=== PATIENT | female | born 1970 | race Caucasian/White ===

== ENCOUNTER → 2017-12-25 | Outpatient (CLI) | payer OTHER ==
[~2017-12-25] MED LIST: COLACE 100100 MG/CAP PO; DESYREL DIVIDO300 MG PO; DILAUDID 4MG TAB4 MG PO; EXALGO12 MG PO; HUMIRA40 MG/0.1; LIORESAL20 MG PO; LODINE500 MG PO; MIRALAX119G PO; NEURONTIN800 MG/TAB PO; NORVASC 10MG10 MG PO; TYLENOL 500MG500 MG PO; WELLBUTRIN SR200 MG PO
== END ==
LOC: COL.RAD 08:00
DX: R10.12 Left upper quadrant pain (principal); R10.13 Epigastric pain; R14.0 Abdominal distension (gaseous); R11.10 Vomiting, unspecified; R16.1 Splenomegaly, not elsewhere classified; Z88.8 Allergy status to other drugs, medicaments and biological substances
CPT/HCPCS: A9541

== ENCOUNTER → 2019-07-01 | Outpatient (CLI) | payer OTHER | LOC: BHSO 10:24 | DX: F31.81 Bipolar II disorder (principal) ==

== ENCOUNTER → 2019-08-07 | Outpatient (CLI) | payer OTHER | LOC: BHSO 09:28 | DX: F31.81 Bipolar II disorder (principal) | CPT/HCPCS: G0463 ==

== ENCOUNTER → 2019-11-06 | Outpatient (CLI) | payer OTHER | LOC: BHSO 09:32 | DX: F31.81 Bipolar II disorder (principal) | CPT/HCPCS: G0463 ==

== ENCOUNTER → 2020-03-04 | Outpatient (CLI) | payer OTHER | LOC: BHSO 09:31 | DX: F31.81 Bipolar II disorder (principal) | CPT/HCPCS: G0463 ==

== ENCOUNTER → 2020-05-27 | Outpatient (CLI) | payer OTHER | LOC: BHSO 09:36 | DX: F31.81 Bipolar II disorder (principal) | CPT/HCPCS: G0463 ==

== ENCOUNTER → 2020-06-15 | Outpatient (CLI) | payer OTHER | LOC: BHSO 10:58 | DX: F31.11 Bipolar disorder, current episode manic without psychotic features, mild (principal) ==

== ENCOUNTER 2020-10-27 07:27 | Day surgery (SDC) | payer OTHER ==
[~2020-10-27] VITALS: Ht 172.7 cm; Wt 86.6 kg
[2020-10-27 08:15] VITALS: BP 130/75; PULSE 72; TEMP 98
[2020-10-27] MEDS ORDERED: WELLBUTRIN SR150 M1 PO (08:23)
[2020-10-27] MEDS ORDERED: NEURONTIN600 MG/TAB PO (08:24)
[2020-10-27] MEDS ORDERED: DESYREL 100MG100 MG PO (08:25)
[2020-10-27] MEDS ORDERED: FLOMAX 0.40.4 MG/CAP PO (08:26)
[2020-10-27] MEDS ORDERED: NORCO 325 MG-51 TAB PO (08:26)
--- NOTE | 2020-10-27 08:28 | NUR ---
TO RM 2 AT 0745- CALL LIGHT IN REACH AT BEDSIDE
[2020-10-27 10:57] VITALS: TEMP 97.2
[2020-10-27 11:05] VITALS: BP 114/75; PULSE 65
--- NOTE | 2020-10-27 11:05 | NUR ---
TO 2 PER CART FROM PACU. ALERT ORIETNED X3, TALKING WITH STAFF AND . C/O PAIN 3/10 AND DENIES NAUSEA. UPON RETURNING TO , PATIENT AMBULATED TO BATHROOM AND VOIDED.
[2020-10-27 11:20] VITALS: BP 112/79; PULSE 91
--- NOTE | 2020-10-27 11:20 | NUR ---
RECEIVED DIET PEPSI AND DAVY CRACKERS.
--- NOTE | 2020-10-27 11:35 | NUR ---
AMBULATED TO BATHROOM. VOIDED AND TOLERATED WELL. CONTINUES TO DENY PAIN OR DISCOMFORT AT THIS TIME.
--- NOTE | 2020-10-27 11:45 | NUR ---
RECEIVED DISCHARGE INSTRUCTIONS AND VERBALIZED UNDERSTANDING. DISCONTINUED IV AND INT WENT TO WARM UP THE CAR.
[2020-10-27 11:53] VITALS: BP 114/95; PULSE 58
--- NOTE | 2020-10-27 11:55 | NUR ---
DISCHARGED PER WC BY NURSING STAFF TO PRIVATE CAR IN CARE OF BILLY.
== END 2020-10-27 12:18 | disposition home or self-care (01) ==
LOC: SDCO 07:27
DX: N20.1 Calculus of ureter (principal); F32.9 Major depressive disorder, single episode, unspecified; F17.210 Nicotine dependence, cigarettes, uncomplicated; I10 Essential (primary) hypertension; Z20.822 Contact with and (suspected) exposure to COVID-19; F41.0 Panic disorder [episodic paroxysmal anxiety]; R35.1 Nocturia; R31.9 Hematuria, unspecified; R30.0 Dysuria; R39.15 Urgency of urination; R35.0 Frequency of micturition; Z88.8 Allergy status to other drugs, medicaments and biological substances; Z79.899 Other long term (current) drug therapy
CPT/HCPCS: C1769; C2617; J0690; J1170; J2250; J2405; J2550; J2704; J3010; J7120; Q9967